=== PATIENT | male | born 1950 | race Caucasian/White ===

== ENCOUNTER 2020-10-31 06:28 | Observation (INO) ==
[2020-10-31] MEDS ORDERED: *HR* Propofol 200 MG/20 ML VIAL IVP ONE ×3 (06:44→09:29)
[2020-10-31] MEDS ORDERED: *HR* Midazolam HCl 2 MG/2 ML VIAL ONE (06:44)
[2020-10-31] MEDS ORDERED: *HR* FentaNYL (PF) 100 MCG/2 ML VIAL ONE (06:44)
[2020-10-31] MEDS ORDERED: Ondansetron 4 MG/2 ML VIAL ONE ×2 (06:50→16:00)
[2020-10-31] MEDS ORDERED: *HR* Succinylcholine 200 MG/10 ML VIAL IVP ONE ×2 (06:50→09:23)
[2020-10-31] MEDS ORDERED: Lidocaine HCL 4 ML Topical Solution (Laryng-O-Jet Kit Sterile Pak) TP ONE (06:50)
[2020-10-31] MEDS ORDERED: *HR* Rocuronium Bromide 50 MG/5 ML VIAL ONE (06:50)
[2020-10-31] MEDS ORDERED: Lidocaine -MPF 2% 2 ML VIAL ONE (06:50)
[2020-10-31] MEDS ORDERED: Ringers Solution, Lactated 1,000 ML IVC SCH (07:15)
[2020-10-31] MEDS ORDERED: *HR* Remifentanil 1 MG VIAL IVP ONE ×4 (07:33→15:05)
[2020-10-31] MEDS ORDERED: *HR* OxyCODONE Immed Rel 5 MG TABLET PO PRN (07:39)
[2020-10-31] MEDS ORDERED: Heparin 1,000 UNITS/500 mL 500 ML ONE (07:39)
[2020-10-31] MEDS ORDERED: Ondansetron 4 MG/2 ML VIAL IVP PRN (07:39)
[2020-10-31] MEDS ORDERED: *HR* HYDROmorphone PF 0.5 MG/0.5 ML SYRINGE IVP PRN (07:39)
[2020-10-31] MEDS ORDERED: Promethazine 6.25 MG in Water for inj. (sterile) 20 ML IVPB PRN (07:39)
[2020-10-31] MEDS ORDERED: Ketamine *HR* 500 MG/10 ML MDV ONE (07:41)
[2020-10-31] MEDS ORDERED: Bacitracin 50,000 UNIT, Polymyxin B Sulfate 500,000 UNIT, Sodium Chloride IRRigation 1,... IR ONE (07:45)
[2020-10-31] MEDS ORDERED: EPHEDrine 50 MG/ML VIAL ONE ×2 (08:11→14:25)
[2020-10-31] MEDS: Clindamycin 900 MG/50 ML 900 MG/50 ML IV.SOLN IVPB ONE ×2 (10:38→14:12)
[2020-10-31] MEDS ORDERED: Albumin Human 5% 12.5 GM/250 ML IV.SOLN ONE (11:22)
[2020-10-31] MEDS ORDERED: Clindamycin 900 MG/50 ML 900 MG/50 ML IV.SOLN IVPB ONE (12:50)
[2020-10-31] MEDS ORDERED: Acetaminophen IV 1,000 MG/100 ML BAG IVPB ONE (12:50)
[2020-10-31 15:32] LABS: ABG Base Excess -1 mEq/L (-2 to 3); ABG Chloride 103 mEq/L (98-107); ABG Glucose 200 mg/dL (60-95); ABG HCO3 25 mEq/L (21-27); ABG Ionized Calcium 1.15 mmol/L (1.15-1.35); ABG Oxygen Saturation 100 % (95-98); ABG PCO2 45 mmHg (35-45); ABG PH 7.35 pH Units (7.32-7.45); ABG PO2 380 mmHg (85-104); ABG TCO2 26 mEq/L (20-26)
[2020-10-31] MEDS ORDERED: *HR* HYDROMORPHONE 2 MG/ML VIAL ONE (16:28)
[2020-10-31] MEDS ORDERED: Acetaminophen 325 MG TABLET PO PRN (18:08)
[2020-10-31] MEDS ORDERED: Naloxone 0.4 MG/ML INJ IVP PRN (18:08)
[2020-10-31] MEDS: *HR* HYDROcodone/Acet 5/325 mg TABLET PO PRN (19:21)
[2020-10-31] MEDS: Clindamycin 900 MG/50 ML 900 MG/50 ML IV.SOLN IVPB SCH (21:00)
[2020-11-01] MEDS: Ringers Solution, Lactated 1,000 ML IVC SCH (02:41)
[2020-11-01] MEDS: Clindamycin 900 MG/50 ML 900 MG/50 ML IV.SOLN IVPB SCH (05:11)
[2020-11-01] MEDS: *HR* HYDROcodone/Acet 5/325 mg TABLET PO PRN ×2 (05:19→16:03)
[2020-11-01 05:22] LABS: Basophils % 0.1 %; Hematocrit 35.5 % (37.5-50.1); Hemoglobin 11.6 g/dL (12.9-16.9); Immature Granulocytes % 0.5 % (0-4); Lymphocytes # 0.4 K/mcL (0.6-4.6); Lymphocytes % 3.5 %; Mean Corpuscular HGB Conc 32.7 g/dL (31.6-35.5); Mean Corpuscular Volume 88.8 fL (83.0-100.0); Mean Platelet Volume 9.8 fL (9.4-12.4); Monocytes # 1.1 K/mcL (0.0-1.3); Monocytes % 9.8 %; Platelet Count 161 K/mcL (140-400); Segmented Neutrophils % 86.1 %; White Blood Count 11.6 K/mcL (4.3-11.1)
[2020-11-01 05:38] LABS: BUN/Creatinine Ratio 21 (6-26); Blood Urea Nitrogen 21 mg/dL (8-23); Calcium 8.6 mg/dL (8.6-10.3); Carbon Dioxide 24 mEq/L (23-29); Chloride 103 mEq/L (98-107); Glucose 293 mg/dL (70-105); Osmolality,Calculated 294 (280-300); Potassium 4.4 mEq/L (3.5-5.1); Sodium 135 mEq/L (136-145); eGFR For African Americans > 60 (> 60); eGFR For Non-African Americans > 60 (> 60)
[2020-11-01] MEDS ORDERED: Dextrose Gel 15 GM/37.5 ML TUBE PO PRN ×2 (05:55)
[2020-11-01] MEDS ORDERED: D5% in Water 1,000 ML IVC PRN (05:55)
[2020-11-01] MEDS ORDERED: *HR* Dextrose 50 % in Water (Vial) 50 ML VIAL IVP PRN (05:55)
[2020-11-01] MEDS ORDERED: diazePAM 2 MG TABLET PO PRN (06:03)
[2020-11-01] MEDS: lisinopriL 5 MG TABLET PO SCH (07:50)
[2020-11-01] MEDS: Pregabalin 75 MG CAPSULE PO SCH ×2 (07:51→21:33)
[2020-11-01] MEDS: *HR* OxyCODONE Immed Rel 5 MG TABLET PO PRN ×2 (07:51→12:43)
[2020-11-01] MEDS ORDERED: *HR* Metformin 500 MG TABLET PO SCH (08:00)
[2020-11-01] MEDS ORDERED: *HR* Glimepiride 4 MG TABLET PO SCH (08:00)
[2020-11-01] MEDS: Insulin LISPRO 300 UNITS/3 ML VIAL SUBQ SCH ×3 (08:01→17:07)
[2020-11-01] MEDS: Acetaminophen 325 MG TABLET PO SCH ×2 (12:42→17:52)
[2020-11-01] MEDS: tiZANidine 4 MG TABLET PO PRN (14:23)
[2020-11-01] MEDS: Insulin DETEMIR 100 UNIT/ML X5UNITS SUBQ SCH (21:33)
[2020-11-02] MEDS: Acetaminophen 325 MG TABLET PO SCH ×5 (00:15→23:46)
[2020-11-02] MEDS: *HR* HYDROcodone/Acet 5/325 mg TABLET PO PRN (06:30)
[2020-11-02] MEDS: Insulin LISPRO 300 UNITS/3 ML VIAL SUBQ SCH ×3 (08:18→17:46)
[2020-11-02] MEDS: lisinopriL 5 MG TABLET PO SCH (09:28)
[2020-11-02] MEDS: Pregabalin 75 MG CAPSULE PO SCH ×2 (09:28→21:53)
[2020-11-02] MEDS: tiZANidine 4 MG TABLET PO PRN (16:07)
[2020-11-02] MEDS: Insulin DETEMIR 100 UNIT/ML X5UNITS SUBQ SCH (21:54)
[2020-11-03] MEDS: Acetaminophen 325 MG TABLET PO SCH ×4 (05:52→23:40)
[2020-11-03 07:42] LABS: Basophils % 0.2 %; Eosinophils % 0.6 %; Hematocrit 28.9 % (37.5-50.1); Immature Granulocytes % 0.9 % (0-4); Lymphocytes # 0.5 K/mcL (0.6-4.6); Lymphocytes % 7.7 %; Mean Corpuscular HGB Conc 32.2 g/dL (31.6-35.5); Mean Corpuscular Hemoglobin 29.6 pg (28.0-33.3); Mean Platelet Volume 9.9 fL (9.4-12.4); Monocytes # 0.7 K/mcL (0.0-1.3); Monocytes % 11.4 %; Neutrophils # 5.1 K/mcL (1.6-8.9); Platelet Count 137 K/mcL (140-400); Red Blood Count 3.14 M/mcL (4.19-5.50); Red Cell Distribution Width 13.2 % (11.5-14.5); Segmented Neutrophils % 79.2 %; White Blood Count 6.5 K/mcL (4.3-11.1)
[2020-11-03 07:51] LABS: Hemoglobin 9.3 g/dL (12.9-16.9)
[2020-11-03 07:56] LABS: BUN/Creatinine Ratio 36 (6-26); Blood Urea Nitrogen 32 mg/dL (8-23); Calcium 8.7 mg/dL (8.6-10.3); Carbon Dioxide 28 mEq/L (23-29); Chloride 101 mEq/L (98-107); Glucose 159 mg/dL (70-105); Osmolality,Calculated 288 (280-300); Sodium 134 mEq/L (136-145); eGFR For African Americans > 60 (> 60); eGFR For Non-African Americans > 60 (> 60)
[2020-11-03] MEDS: Insulin LISPRO 300 UNITS/3 ML VIAL SUBQ SCH ×3 (08:56→17:24)
[2020-11-03] MEDS: lisinopriL 5 MG TABLET PO SCH (09:01)
[2020-11-03] MEDS: Pregabalin 75 MG CAPSULE PO SCH ×2 (09:01→21:24)
[2020-11-03] MEDS: *HR* HYDROcodone/Acet 5/325 mg TABLET PO PRN ×2 (09:23→16:00)
[2020-11-03] MEDS: Insulin DETEMIR 100 UNIT/ML X5UNITS SUBQ SCH (21:24)
[2020-11-04 03:16] LABS: BUN/Creatinine Ratio 39 (6-26); Blood Urea Nitrogen 30 mg/dL (8-23); Calcium 8.8 mg/dL (8.6-10.3); Carbon Dioxide 26 mEq/L (23-29); Chloride 102 mEq/L (98-107); Glucose 169 mg/dL (70-105); Osmolality,Calculated 292 (280-300); Potassium 3.9 mEq/L (3.5-5.1); Sodium 136 mEq/L (136-145); eGFR For African Americans > 60 (> 60); eGFR For Non-African Americans > 60 (> 60)
[2020-11-04 03:22] LABS: Basophils % 0.2 %; Eosinophils # 0.1 K/mcL (0.0-0.6); Hematocrit 29.5 % (37.5-50.1); Hemoglobin 9.5 g/dL (12.9-16.9); Lymphocytes # 0.7 K/mcL (0.6-4.6); Lymphocytes % 10.8 %; Mean Corpuscular HGB Conc 32.2 g/dL (31.6-35.5); Mean Corpuscular Hemoglobin 29.3 pg (28.0-33.3); Mean Platelet Volume 10.1 fL (9.4-12.4); Monocytes # 0.6 K/mcL (0.0-1.3); Monocytes % 10.2 %; Neutrophils # 4.8 K/mcL (1.6-8.9); Platelet Count 156 K/mcL (140-400); Red Blood Count 3.24 M/mcL (4.19-5.50); Red Cell Distribution Width 12.9 % (11.5-14.5); Segmented Neutrophils % 76.8 %; White Blood Count 6.3 K/mcL (4.3-11.1)
[2020-11-04] MEDS: Acetaminophen 325 MG TABLET PO SCH ×2 (06:01→12:20)
[2020-11-04] MEDS: Ringers Solution, Lactated 1,000 ML IVC SCH ×6 (09:29→13:49)
[2020-11-04] MEDS: Insulin LISPRO 300 UNITS/3 ML VIAL SUBQ SCH ×2 (09:40→12:20)
[2020-11-04] MEDS: lisinopriL 5 MG TABLET PO SCH (09:45)
[2020-11-04] MEDS: Pregabalin 75 MG CAPSULE PO SCH (09:45)
[2020-11-04 10:43] VITALS: BP 129/76
[2020-11-04 13:19] LABS: Influenza A PCR Negative (Negative); Influenza B PCR Negative (Negative); Resp. Syncytial Virus PCR Negative (Negative)
[2020-11-04 13:26] LABS: SARS-CoV-2 by PCR (In House) Negative (Negative)
[2020-11-04] MEDS: *HR* OxyCODONE Immed Rel 5 MG TABLET PO PRN (13:49)
== END 2020-11-04 16:12 ==
LOC: SAMDAY 06:28 → 3NENU 06:28
PROVIDERS: ADMIT Orthopaedic Surgery Orthopaedic Surgery of the Spine; ATTEND Orthopaedic Surgery Orthopaedic Surgery of the Spine

== ENCOUNTER 2022-06-15 12:03 | Inpatient (IN) ==
[2022-06-15] MEDS ORDERED: Naloxone 0.4 MG/ML INJ IVP PRN (15:53)
[2022-06-15] MEDS ORDERED: Mag Hydrox/Al Hydrox/Simeth 30 ML UDC PO PRN (15:53)
[2022-06-15] MEDS ORDERED: Ondansetron 4 MG/2 ML VIAL IVP PRN (15:53)
[2022-06-15] MEDS ORDERED: *HR* Dextrose 50 % in Water (Syg) 50 ML SYRINGE IVP PRN (15:53)
[2022-06-15] MEDS ORDERED: MOM Conc 10 ML UD.LIQ PO PRN (15:53)
[2022-06-15] MEDS ORDERED: D5% in Water 1,000 ML IVC PRN (15:53)
[2022-06-15] MEDS ORDERED: Dextrose Gel 15 GM/37.5 ML TUBE PO PRN ×2 (15:53)
[2022-06-15] MEDS ORDERED: Iopamidol - 370 500 ML MLS IVP ONE (17:20)
[2022-06-15] MEDS ORDERED: tiZANidine 4 MG TABLET PO PRN (17:22)
[2022-06-15] MEDS: Insulin LISPRO 300 UNITS/3 ML VIAL SUBQ SCH ×2 (17:35→21:15)
[2022-06-15] MEDS ORDERED: polyethylene glycoL 3350 17 GM POWD.PACK PO PRN (18:11)
[2022-06-15] MEDS: *HR* OxyCODONE Immed Rel 5 MG TABLET PO PRN (21:23)
[2022-06-15] MEDS: Pregabalin 75 MG CAPSULE PO SCH (21:24)
[2022-06-16] MEDS ORDERED: *HR* Heparin 5,000 UNIT/ML VIAL IVP PRN (01:21)
[2022-06-16] MEDS: Heparin 25,000UNIT/250ML 1/2NS 25,000 UNIT/250 ML IV.SOLN IVC SCH ×2 (02:07→09:26)
[2022-06-16] MEDS: *HR* Heparin 5,000 UNIT/ML VIAL IVP PRN ×2 (02:09→19:55)
[2022-06-16] MEDS: Insulin LISPRO 300 UNITS/3 ML VIAL SUBQ SCH ×4 (07:50→20:20)
[2022-06-16] MEDS ORDERED: lisinopriL 5 MG TABLET PO SCH (09:00)
[2022-06-16] MEDS: Carbidopa/Levodopa 25/100 TABLET PO SCH ×3 (09:24→20:44)
[2022-06-16] MEDS: Pregabalin 75 MG CAPSULE PO SCH ×2 (09:24→20:44)
[2022-06-16] MEDS: Aspirin Enteric Coated 81 MG Tablet PO SCH (09:25)
[2022-06-16] MEDS: *HR* OxyCODONE Immed Rel 5 MG TABLET PO PRN ×2 (09:46→20:44)
[2022-06-16 11:45] LABS: Hematocrit 25.8 % (37.5-50.1); Mean Corpuscular Hemoglobin 27.9 pg (28.0-33.3); Mean Corpuscular Volume 89.9 fL (83.0-100.0); Mean Platelet Volume 9.3 fL (9.4-12.4); Platelet Count 233 K/mcL (140-400); Red Blood Count 2.87 M/mcL (4.19-5.50); Red Cell Distribution Width 13.7 % (11.5-14.5); White Blood Count 7.3 K/mcL (4.3-11.1)
[2022-06-16 12:06] LABS: BUN/Creatinine Ratio 26 (6-26); Blood Urea Nitrogen 18 mg/dL (8-23); Calcium 8.4 mg/dL (8.6-10.3); Carbon Dioxide 26 mEq/L (23-29); Chloride 103 mEq/L (98-107); Chol/HDL Ratio 4.5 (0-4.9); Cholesterol 117 mg/dL (< 200); Glucose 203 mg/dL (70-105); HDL Cholesterol 26 mg/dL (40-59); LDL Cholesterol,Calculated 63 mg/dL (< 100); Magnesium 1.9 mg/dL (1.6-2.6); Osmolality,Calculated 292 (280-300); Sodium 137 mEq/L (136-145); Triglycerides 141 mg/dL (< 150)
[2022-06-16 13:17] LABS: Hematocrit 25.1 % (37.5-50.1)
[2022-06-16 22:39] LABS: Hematocrit 25.2 % (37.5-50.1); Hemoglobin 7.9 g/dL (12.9-16.9)
[2022-06-17] MEDS: Heparin 25,000UNIT/250ML 1/2NS 25,000 UNIT/250 ML IV.SOLN IVC SCH (00:04)
[2022-06-17 01:18] LABS: Basophils % 0.3 %; Eosinophils # 0.1 K/mcL (0.0-0.6); Hematocrit 24.7 % (37.5-50.1); Hemoglobin 7.7 g/dL (12.9-16.9); Immature Granulocytes % 1.8 % (0-4); Lymphocytes % 13.6 %; Mean Corpuscular HGB Conc 31.2 g/dL (31.6-35.5); Mean Corpuscular Hemoglobin 28.4 pg (28.0-33.3); Mean Corpuscular Volume 91.1 fL (83.0-100.0); Mean Platelet Volume 9.9 fL (9.4-12.4); Monocytes # 0.6 K/mcL (0.0-1.3); Monocytes % 7.8 %; Neutrophils # 5.3 K/mcL (1.6-8.9); Platelet Count 257 K/mcL (140-400); Red Blood Count 2.71 M/mcL (4.19-5.50); Red Cell Distribution Width 13.9 % (11.5-14.5); Segmented Neutrophils % 75.5 %; White Blood Count 7.1 K/mcL (4.3-11.1)
[2022-06-17 01:35] LABS: BUN/Creatinine Ratio 24 (6-26); Blood Urea Nitrogen 18 mg/dL (8-23); Calcium 8.3 mg/dL (8.6-10.3); Carbon Dioxide 27 mEq/L (23-29); Chloride 106 mEq/L (98-107); Glucose 110 mg/dL (70-105); Osmolality,Calculated 291 (280-300); Potassium 3.8 mEq/L (3.5-5.1); Sodium 139 mEq/L (136-145)
[2022-06-17 01:43] LABS: Troponin I 0.13 ng/mL (< 0.04)
[2022-06-17 01:50] LABS: Thyroid Stimulating Hormone 2.632 mcIU/mL (0.340-5.600)
[2022-06-17] MEDS ORDERED: 0.9 % Sodium Chloride 250 ML ONE (01:54)
[2022-06-17 03:30] LABS: Estimated Average Glucose 151 mg/dl; Hemoglobin A1C 6.9 %
[2022-06-17] MEDS: *HR* OxyCODONE Immed Rel 5 MG TABLET PO PRN (06:10)
[2022-06-17] MEDS: Aspirin Enteric Coated 81 MG Tablet PO SCH (08:03)
[2022-06-17] MEDS: Carbidopa/Levodopa 25/100 TABLET PO SCH ×3 (08:04→20:24)
[2022-06-17] MEDS: Pregabalin 75 MG CAPSULE PO SCH ×2 (08:05→20:24)
[2022-06-17] MEDS: lisinopriL 5 MG TABLET PO SCH (08:05)
[2022-06-17] MEDS: Insulin LISPRO 300 UNITS/3 ML VIAL SUBQ SCH ×4 (08:06→20:07)
[2022-06-17 09:36] LABS: Basophils % 0.2 %; Eosinophils # 0.1 K/mcL (0.0-0.6); Hematocrit 28.4 % (37.5-50.1); Hemoglobin 8.9 g/dL (12.9-16.9); Immature Granulocytes % 1.6 % (0-4); Lymphocytes # 0.7 K/mcL (0.6-4.6); Lymphocytes % 8.8 %; Mean Corpuscular HGB Conc 31.3 g/dL (31.6-35.5); Mean Corpuscular Hemoglobin 28.5 pg (28.0-33.3); Mean Platelet Volume 9.7 fL (9.4-12.4); Monocytes # 0.5 K/mcL (0.0-1.3); Monocytes % 5.7 %; Neutrophils # 6.7 K/mcL (1.6-8.9); Platelet Count 269 K/mcL (140-400); Red Blood Count 3.12 M/mcL (4.19-5.50); Segmented Neutrophils % 82.7 %; White Blood Count 8.1 K/mcL (4.3-11.1)
[2022-06-17] MEDS: Acetaminophen 325 MG TABLET PO PRN (10:32)
[2022-06-18] MEDS: lisinopriL 5 MG TABLET PO SCH (08:20)
[2022-06-18] MEDS: Pregabalin 75 MG CAPSULE PO SCH ×2 (08:21→20:27)
[2022-06-18] MEDS: Aspirin Enteric Coated 81 MG Tablet PO SCH (08:21)
[2022-06-18] MEDS: Insulin LISPRO 300 UNITS/3 ML VIAL SUBQ SCH ×4 (08:22→20:28)
[2022-06-18] MEDS: *HR* OxyCODONE Immed Rel 5 MG TABLET PO PRN (08:25)
[2022-06-18] MEDS: Carbidopa/Levodopa 25/100 TABLET PO SCH ×3 (08:25→20:28)
[2022-06-18 17:55] LABS: BUN/Creatinine Ratio 18 (6-26); Blood Urea Nitrogen 14 mg/dL (8-23); Calcium 8.2 mg/dL (8.6-10.3); Carbon Dioxide 25 mEq/L (23-29); Chloride 104 mEq/L (98-107); Glucose 207 mg/dL (70-105); Magnesium 1.8 mg/dL (1.6-2.6); Osmolality,Calculated 291 (280-300); Potassium 4.3 mEq/L (3.5-5.1); Sodium 137 mEq/L (136-145)
[2022-06-18 17:56] LABS: Hematocrit 29.1 % (37.5-50.1); Hemoglobin 9.2 g/dL (12.9-16.9); Mean Corpuscular HGB Conc 31.6 g/dL (31.6-35.5); Mean Corpuscular Hemoglobin 28.2 pg (28.0-33.3); Mean Corpuscular Volume 89.3 fL (83.0-100.0); Mean Platelet Volume 10.5 fL (9.4-12.4); Platelet Count 233 K/mcL (140-400); Red Blood Count 3.26 M/mcL (4.19-5.50); Red Cell Distribution Width 13.7 % (11.5-14.5); White Blood Count 9.2 K/mcL (4.3-11.1)
[2022-06-19] MEDS: *HR* HYDROcodone/Acet 5/325 mg TABLET PO PRN ×2 (07:42→15:33)
[2022-06-19] MEDS: Insulin LISPRO 300 UNITS/3 ML VIAL SUBQ SCH ×4 (07:55→20:43)
[2022-06-19] MEDS: lisinopriL 5 MG TABLET PO SCH (08:44)
[2022-06-19] MEDS: Carbidopa/Levodopa 25/100 TABLET PO SCH ×3 (08:44→20:42)
[2022-06-19] MEDS: Pregabalin 75 MG CAPSULE PO SCH ×2 (08:45→20:41)
[2022-06-19] MEDS: Aspirin Enteric Coated 81 MG Tablet PO SCH (08:45)
[2022-06-19 13:45] LABS: Basophils % 0.1 %; Eosinophils # 0.1 K/mcL (0.0-0.6); Eosinophils % 0.6 %; Hematocrit 30.6 % (37.5-50.1); Hemoglobin 9.6 g/dL (12.9-16.9); Lymphocytes # 0.6 K/mcL (0.6-4.6); Mean Corpuscular HGB Conc 31.4 g/dL (31.6-35.5); Mean Corpuscular Hemoglobin 28.5 pg (28.0-33.3); Mean Corpuscular Volume 90.8 fL (83.0-100.0); Mean Platelet Volume 9.4 fL (9.4-12.4); Monocytes # 0.8 K/mcL (0.0-1.3); Monocytes % 8.2 %; Neutrophils # 7.8 K/mcL (1.6-8.9); Platelet Count 307 K/mcL (140-400); Red Blood Count 3.37 M/mcL (4.19-5.50); Red Cell Distribution Width 13.7 % (11.5-14.5); Segmented Neutrophils % 84.1 %; White Blood Count 9.3 K/mcL (4.3-11.1)
[2022-06-19 14:03] LABS: BUN/Creatinine Ratio 15 (6-26); Blood Urea Nitrogen 13 mg/dL (8-23); Calcium 8.4 mg/dL (8.6-10.3); Carbon Dioxide 27 mEq/L (23-29); Chloride 103 mEq/L (98-107); Glucose 196 mg/dL (70-105); Osmolality,Calculated 290 (280-300); Potassium 4.2 mEq/L (3.5-5.1); Sodium 137 mEq/L (136-145)
[2022-06-19] MEDS: *HR* OxyCODONE Immed Rel 5 MG TABLET PO PRN (17:12)
[2022-06-20 03:02] LABS: Basophils % 0.5 %; Eosinophils # 0.1 K/mcL (0.0-0.6); Eosinophils % 0.9 %; Hematocrit 27.3 % (37.5-50.1); Hemoglobin 8.3 g/dL (12.9-16.9); Immature Granulocytes % 1.7 % (0-4); Lymphocytes # 0.7 K/mcL (0.6-4.6); Lymphocytes % 10.7 %; Mean Corpuscular HGB Conc 30.4 g/dL (31.6-35.5); Mean Corpuscular Hemoglobin 27.4 pg (28.0-33.3); Mean Corpuscular Volume 90.1 fL (83.0-100.0); Mean Platelet Volume 9.4 fL (9.4-12.4); Monocytes # 0.8 K/mcL (0.0-1.3); Monocytes % 11.7 %; Platelet Count 296 K/mcL (140-400); Red Blood Count 3.03 M/mcL (4.19-5.50); Red Cell Distribution Width 13.9 % (11.5-14.5); Segmented Neutrophils % 74.5 %; White Blood Count 6.7 K/mcL (4.3-11.1)
[2022-06-20 03:26] LABS: BUN/Creatinine Ratio 17 (6-26); Blood Urea Nitrogen 13 mg/dL (8-23); Carbon Dioxide 26 mEq/L (23-29); Chloride 104 mEq/L (98-107); Glucose 144 mg/dL (70-105); Osmolality,Calculated 289 (280-300); Potassium 3.9 mEq/L (3.5-5.1); Sodium 138 mEq/L (136-145)
[2022-06-20] MEDS: Pregabalin 75 MG CAPSULE PO SCH ×2 (08:34→21:37)
[2022-06-20] MEDS: Aspirin Enteric Coated 81 MG Tablet PO SCH (08:34)
[2022-06-20] MEDS: lisinopriL 5 MG TABLET PO SCH (08:35)
[2022-06-20] MEDS: Carbidopa/Levodopa 25/100 TABLET PO SCH ×3 (08:35→21:37)
[2022-06-20] MEDS: Insulin LISPRO 300 UNITS/3 ML VIAL SUBQ SCH ×4 (08:36→21:36)
[2022-06-20] MEDS: *HR* HYDROcodone/Acet 5/325 mg TABLET PO PRN ×3 (08:41→21:36)
[2022-06-20 10:42] LABS: Hematocrit 28.2 % (37.5-50.1); Hemoglobin 8.8 g/dL (12.9-16.9)
[2022-06-20 13:20] LABS: BUN/Creatinine Ratio 16 (6-26); Blood Urea Nitrogen 13 mg/dL (8-23); Calcium 7.8 mg/dL (8.6-10.3); Carbon Dioxide 24 mEq/L (23-29); Chloride 104 mEq/L (98-107); Glucose 261 mg/dL (70-105); Osmolality,Calculated 291 (280-300); Potassium 4.1 mEq/L (3.5-5.1); Sodium 136 mEq/L (136-145)
[2022-06-20] MEDS: Acetaminophen 325 MG TABLET PO PRN (13:54)
[2022-06-21] MEDS: Insulin LISPRO 300 UNITS/3 ML VIAL SUBQ SCH ×4 (07:52→20:45)
[2022-06-21] MEDS: Aspirin Enteric Coated 81 MG Tablet PO SCH (08:04)
[2022-06-21] MEDS: Carbidopa/Levodopa 25/100 TABLET PO SCH ×3 (08:04→20:45)
[2022-06-21] MEDS: *HR* HYDROcodone/Acet 5/325 mg TABLET PO PRN ×2 (08:04→20:45)
[2022-06-21] MEDS: lisinopriL 5 MG TABLET PO SCH (08:05)
[2022-06-21] MEDS: Pregabalin 75 MG CAPSULE PO SCH ×2 (08:05→20:44)
[2022-06-21 09:07] LABS: Basophils % 0.4 %; Eosinophils # 0.1 K/mcL (0.0-0.6); Eosinophils % 0.9 %; Hematocrit 31.4 % (37.5-50.1); Hemoglobin 9.9 g/dL (12.9-16.9); Lymphocytes # 0.6 K/mcL (0.6-4.6); Mean Corpuscular HGB Conc 31.5 g/dL (31.6-35.5); Mean Corpuscular Hemoglobin 28.2 pg (28.0-33.3); Mean Corpuscular Volume 89.5 fL (83.0-100.0); Mean Platelet Volume 9.2 fL (9.4-12.4); Monocytes # 0.8 K/mcL (0.0-1.3); Monocytes % 10.2 %; Platelet Count 327 K/mcL (140-400); Red Blood Count 3.51 M/mcL (4.19-5.50); Segmented Neutrophils % 78.5 %; White Blood Count 7.6 K/mcL (4.3-11.1)
[2022-06-21] MEDS ORDERED: Metoprolol XL (24 HR) Succ 25 MG TAB.ER.24H PO SCH (10:45)
[2022-06-21] MEDS ORDERED: Iopamidol - 370 200 ML INFUS..BTL ONE (14:23)
[2022-06-21] MEDS ORDERED: 0.9 % Sodium Chloride 2,000 ML ONE (14:23)
[2022-06-21] MEDS ORDERED: *HR* FentaNYL (PF) 100 MCG/2 ML VIAL ONE (14:23)
[2022-06-21] MEDS ORDERED: Heparin 1,000 UNITS/500 mL 500 ML ONE (14:23)
[2022-06-21] MEDS ORDERED: *HR* Midazolam HCl 2 MG/2 ML VIAL ONE (14:23)
[2022-06-21] MEDS ORDERED: *HR* Heparin 10,000 UNIT/10 ML VIAL ONE (14:23)
[2022-06-21] MEDS ORDERED: Nitroglycerin 1,000 MCG/5 ML VIAL IV ONE (14:23)
[2022-06-21 19:18] LABS: ABG Base Excess 2 mEq/L (-2 to 3); ABG HCO3 26 mEq/L (21-27); ABG Oxygen Saturation 95 % (95-98); ABG PCO2 36 mmHg (35-45); ABG PH 7.47 pH Units (7.32-7.45); ABG PO2 68 mmHg (85-104); ABG TCO2 27 mEq/L (20-26)
[2022-06-21] MEDS: Chlorhexidine Rinse 15 ML MOUTHWASH MM SCH (20:44)
[2022-06-22] MEDS: Chlorhexidine Rinse 15 ML MOUTHWASH MM SCH ×3 (04:57→20:00)
[2022-06-22 05:03] LABS: Basophils % 0.5 %; Eosinophils # 0.1 K/mcL (0.0-0.6); Eosinophils % 1.3 %; Hemoglobin 9.3 g/dL (12.9-16.9); Immature Granulocytes % 1.5 % (0-4); Lymphocytes # 0.7 K/mcL (0.6-4.6); Lymphocytes % 11.4 %; Mean Corpuscular Hemoglobin 27.8 pg (28.0-33.3); Mean Corpuscular Volume 92.8 fL (83.0-100.0); Mean Platelet Volume 9.4 fL (9.4-12.4); Monocytes # 0.7 K/mcL (0.0-1.3); Monocytes % 11.1 %; Neutrophils # 4.5 K/mcL (1.6-8.9); Platelet Count 345 K/mcL (140-400); Red Blood Count 3.34 M/mcL (4.19-5.50); Red Cell Distribution Width 13.9 % (11.5-14.5); Segmented Neutrophils % 74.2 %
[2022-06-22 05:18] LABS: BUN/Creatinine Ratio 18 (6-26); Blood Urea Nitrogen 13 mg/dL (8-23); Calcium 8.3 mg/dL (8.6-10.3); Carbon Dioxide 27 mEq/L (23-29); Chloride 104 mEq/L (98-107); Glucose 142 mg/dL (70-105); Osmolality,Calculated 289 (280-300); Potassium 4.1 mEq/L (3.5-5.1); Sodium 138 mEq/L (136-145)
[2022-06-22] MEDS ORDERED: Aspirin 81 MG TAB.CHEW PO ONE ×2 (06:00→16:00)
[2022-06-22] MEDS ORDERED: Clindamycin 900 MG/50 ML 900 MG/50 ML IV.SOLN IVPB ONE (06:00)
[2022-06-22] MEDS ORDERED: *HR* Vasopressin 20 UNIT/ML VIAL ONE (06:06)
[2022-06-22] MEDS ORDERED: DOBUTamine 1,000 MG/250 ML BAG ONE (06:06)
[2022-06-22] MEDS ORDERED: Papaverine 60 MG/2 ML VIAL IVP ONE (06:08)
[2022-06-22] MEDS ORDERED: *HR* Midazolam HCl 5 MG/5 ML VIAL IVP ONE (06:10)
[2022-06-22] MEDS ORDERED: *HR* FentaNYL (PF) 1,000 MCG/20 ML VIAL ONE (06:10)
[2022-06-22] MEDS ORDERED: *HR* Propofol 200 MG/20 ML VIAL IVP ONE (06:10)
[2022-06-22] MEDS ORDERED: Tranexamic Acid 1,000 MG/10 ML VIAL ONE (06:14)
[2022-06-22] MEDS ORDERED: *HR* Rocuronium Bromide 50 MG/5 ML VIAL ONE ×3 (06:14→12:09)
[2022-06-22] MEDS ORDERED: Famotidine 20 MG/2 ML VIAL ONE (06:14)
[2022-06-22] MEDS ORDERED: *HR* Magnesium Sulfate 1 GM/2 ML VIAL ONE (06:14)
[2022-06-22] MEDS ORDERED: Lidocaine 2% Syringe 100 MG/5 ML ONE (06:14)
[2022-06-22] MEDS ORDERED: Buckersberg's Blood Cardioplegia PF ONE (07:00)
[2022-06-22] MEDS ORDERED: Norepinephrine 4 MG in 0.9 % Sodium Chloride 250 ML IVC PRN (07:00)
[2022-06-22] MEDS ORDERED: del Nido Cardioplegia Solution PF ONE ×2 (07:00)
[2022-06-22] MEDS ORDERED: Heparin 15,000 UNIT in 0.9 % Sodium Chloride 500 ML IR ONE (07:00)
[2022-06-22 07:45] LABS: ABG Base Excess 0 mEq/L (-2 to 3); ABG Chloride 106 mEq/L (98-107); ABG Glucose 158 mg/dL (60-95); ABG HCO3 26 mEq/L (21-27); ABG Oxygen Saturation 100 % (95-98); ABG PCO2 44 mmHg (35-45); ABG PH 7.37 pH Units (7.32-7.45); ABG PO2 422 mmHg (85-104); ABG TCO2 27 mEq/L (20-26)
[2022-06-22 09:55] LABS: ABG Base Excess 0 mEq/L (-2 to 3); ABG Chloride 100 mEq/L (98-107); ABG Glucose 167 mg/dL (60-95); ABG HCO3 24 mEq/L (21-27); ABG Ionized Calcium 1.15 mmol/L (1.15-1.35); ABG Oxygen Saturation 100 % (95-98); ABG PCO2 37 mmHg (35-45); ABG PH 7.42 pH Units (7.32-7.45); ABG PO2 206 mmHg (85-104); ABG TCO2 26 mEq/L (20-26)
[2022-06-22] MEDS ORDERED: *HR* FentaNYL (PF) 250 MCG/5 ML VIAL ONE (09:58)
[2022-06-22 10:40] LABS: ABG Base Excess 1 mEq/L (-2 to 3); ABG Chloride 99 mEq/L (98-107); ABG Glucose 178 mg/dL (60-95); ABG HCO3 26 mEq/L (21-27); ABG Ionized Calcium 1.13 mmol/L (1.15-1.35); ABG Oxygen Saturation 100 % (95-98); ABG PCO2 43 mmHg (35-45); ABG PH 7.39 pH Units (7.32-7.45); ABG PO2 429 mmHg (85-104); ABG TCO2 27 mEq/L (20-26)
[2022-06-22] MEDS ORDERED: Ondansetron 4 MG/2 ML VIAL IVP PRN (10:53)
[2022-06-22] MEDS ORDERED: Albuterol 2.5 MG/3 ML NEBULIZER IH PRN (10:54)
[2022-06-22] MEDS ORDERED: *HR* Dextrose 50 % in Water (Syg) 50 ML SYRINGE IVP PRN (10:54)
[2022-06-22] MEDS ORDERED: Insulin Regular, Human 100 UNIT/ML IV PRN (10:54)
[2022-06-22] MEDS ORDERED: Potassium Chloride 40 MEQ/200 ML BAG IVPB PRN (10:54)
[2022-06-22 10:57] LABS: ABG Base Excess 0 mEq/L (-2 to 3); ABG Chloride 107 mEq/L (98-107); ABG Glucose 165 mg/dL (60-95); ABG HCO3 24 mEq/L (21-27); ABG Ionized Calcium 0.95 mmol/L (1.15-1.35); ABG Oxygen Saturation 100 % (95-98); ABG PCO2 35 mmHg (35-45); ABG PH 7.45 pH Units (7.32-7.45); ABG PO2 313 mmHg (85-104); ABG TCO2 25 mEq/L (20-26)
[2022-06-22] MEDS: Ipratropium/Albuterol Neb 3 ML IH SCH ×4 (11:25→23:16)
[2022-06-22 11:27] LABS: ABG Base Excess 0 mEq/L (-2 to 3); ABG Chloride 99 mEq/L (98-107); ABG Glucose 191 mg/dL (60-95); ABG HCO3 24 mEq/L (21-27); ABG Ionized Calcium 1.06 mmol/L (1.15-1.35); ABG Oxygen Saturation 100 % (95-98); ABG PCO2 36 mmHg (35-45); ABG PH 7.43 pH Units (7.32-7.45); ABG PO2 436 mmHg (85-104); ABG TCO2 25 mEq/L (20-26)
[2022-06-22] MEDS: Pregabalin 75 MG CAPSULE PO SCH ×3 (11:28→20:20)
[2022-06-22] MEDS: Carbidopa/Levodopa 25/100 TABLET PO SCH ×4 (11:28→20:21)
[2022-06-22] MEDS ORDERED: Albumin Human 25% 25 GM/100 ML IV.SOLN IVPB ONE (11:35)
[2022-06-22] MEDS ORDERED: *HR* Heparin 10,000 UNIT/10 ML VIAL IR ONE (11:35)
[2022-06-22] MEDS ORDERED: Tranexamic Acid 1,000 MG/10 ML VIAL IR ONE (11:35)
[2022-06-22] MEDS ORDERED: Lidocaine 2% Syringe 100 MG/5 ML IVP ONE (11:35)
[2022-06-22] MEDS ORDERED: *HR* Magnesium Sulfate 2 GM/50 ML PIGGYBACK IVPB ONE (11:35)
[2022-06-22] MEDS ORDERED: *HR* Phenylephrine 10 MG/ML VIAL IVC ONE (11:35)
[2022-06-22] MEDS ORDERED: Mannitol 25% vial 12.5 GM/50 ML VIAL IVPB ONE (11:35)
[2022-06-22] MEDS ORDERED: Heparin 1,000 UNITS/500 mL IV.SOLN IR ONE (11:35)
[2022-06-22 12:04] LABS: ABG Base Excess 1 mEq/L (-2 to 3); ABG Chloride 100 mEq/L (98-107); ABG Glucose 209 mg/dL (60-95); ABG HCO3 26 mEq/L (21-27); ABG Ionized Calcium 1.06 mmol/L (1.15-1.35); ABG Oxygen Saturation 100 % (95-98); ABG PCO2 40 mmHg (35-45); ABG PH 7.42 pH Units (7.32-7.45); ABG PO2 575 mmHg (85-104); ABG TCO2 27 mEq/L (20-26)
[2022-06-22 12:33] LABS: ABG Base Excess 1 mEq/L (-2 to 3); ABG Chloride 101 mEq/L (98-107); ABG Glucose 207 mg/dL (60-95); ABG HCO3 26 mEq/L (21-27); ABG Oxygen Saturation 100 % (95-98); ABG PCO2 43 mmHg (35-45); ABG PH 7.38 pH Units (7.32-7.45); ABG PO2 559 mmHg (85-104); ABG TCO2 27 mEq/L (20-26)
[2022-06-22 12:51] LABS: ABG Base Excess 0 mEq/L (-2 to 3); ABG Chloride 102 mEq/L (98-107); ABG Glucose 221 mg/dL (60-95); ABG HCO3 25 mEq/L (21-27); ABG Ionized Calcium 1.24 mmol/L (1.15-1.35); ABG Oxygen Saturation 97 % (95-98); ABG PCO2 43 mmHg (35-45); ABG PH 7.37 pH Units (7.32-7.45); ABG PO2 96 mmHg (85-104); ABG TCO2 26 mEq/L (20-26)
[2022-06-22] MEDS ORDERED: niCARdipine 20 MG/200 ML MLS IVC ONE (13:23)
[2022-06-22 14:09] LABS: ABG Base Excess -1 mEq/L (-2 to 3); ABG HCO3 23 mEq/L (21-27); ABG Oxygen Saturation 100 % (95-98); ABG PCO2 34 mmHg (35-45); ABG PH 7.44 pH Units (7.32-7.45); ABG PO2 284 mmHg (85-104); ABG TCO2 24 mEq/L (20-26); Blood Gas Modality ASSIST CONTROL; Blood Gas VT 650 cc
[2022-06-22 14:14] LABS: Basophils % 0.3 %; Eosinophils % 0.3 %; Hematocrit 26.2 % (37.5-50.1); Hemoglobin 8.2 g/dL (12.9-16.9); Immature Granulocytes % 1.8 % (0-4); Lymphocytes # 0.4 K/mcL (0.6-4.6); Lymphocytes % 5.4 %; Mean Corpuscular HGB Conc 31.3 g/dL (31.6-35.5); Mean Corpuscular Hemoglobin 28.2 pg (28.0-33.3); Mean Platelet Volume 9.1 fL (9.4-12.4); Monocytes # 0.2 K/mcL (0.0-1.3); Monocytes % 2.2 %; Neutrophils # 6.6 K/mcL (1.6-8.9); Platelet Count 224 K/mcL (140-400); Red Blood Count 2.91 M/mcL (4.19-5.50); Red Cell Distribution Width 13.7 % (11.5-14.5); White Blood Count 7.4 K/mcL (4.3-11.1)
[2022-06-22 14:27] LABS: INR 1.6; Prothrombin Time 17.4 Seconds (9.4-12.1)
[2022-06-22 14:30] LABS: Activated Partial Thrombo Time 27.1 Seconds (26.0-36.0)
[2022-06-22] MEDS: Albumin Human 5% 12.5 GM/250 ML IV.SOLN IVPB PRN ×4 (14:30→22:35)
[2022-06-22 14:32] LABS: BUN/Creatinine Ratio 21 (6-26); Blood Urea Nitrogen 12 mg/dL (8-23); Calcium 7.3 mg/dL (8.6-10.3); Carbon Dioxide 24 mEq/L (23-29); Chloride 107 mEq/L (98-107); Glucose 202 mg/dL (70-105); Magnesium 2.7 mg/dL (1.6-2.6); Osmolality,Calculated 288 (280-300); Potassium 4.4 mEq/L (3.5-5.1); Sodium 136 mEq/L (136-145)
[2022-06-22] MEDS: DOBUTamine 1,000 MG/250 ML BAG IVC SCH (15:08)
[2022-06-22] MEDS: niCARdipine 20 MG/200 ML MLS IVC SCH ×3 (15:08→19:07)
[2022-06-22] MEDS: Norepinephrine 4 MG/254 ML IV.SOLN IVC SCH ×2 (15:09→22:36)
[2022-06-22] MEDS: Pantoprazole 40 MG VIAL IVP SCH (15:13)
[2022-06-22] MEDS: *HR* OxyCODONE Immed Rel 5 MG TABLET PO PRN (15:14)
[2022-06-22] MEDS: Calcium Gluconate 1gm/50mL 1 GM/50 ML BAG IVPB PRN (15:15)
[2022-06-22] MEDS: Clindamycin 900 MG/50 ML 900 MG/50 ML IV.SOLN IVPB SCH ×2 (15:15→23:19)
[2022-06-22] MEDS: *HR* FentaNYL (PF) 100 MCG/2 ML VIAL IVP PRN (16:20)
[2022-06-22 20:10] LABS: ABG Base Excess 1 mEq/L (-2 to 3); ABG HCO3 26 mEq/L (21-27); ABG Oxygen Saturation 99 % (95-98); ABG PCO2 42 mmHg (35-45); ABG PO2 142 mmHg (85-104); ABG TCO2 27 mEq/L (20-26)
[2022-06-23] MEDS: *HR* FentaNYL (PF) 100 MCG/2 ML VIAL IVP PRN (01:04)
[2022-06-23] MEDS: niCARdipine 20 MG/200 ML MLS IVC SCH ×5 (03:08→19:01)
[2022-06-23] MEDS: Ipratropium/Albuterol Neb 3 ML IH SCH ×5 (03:18→19:58)
[2022-06-23 03:29] LABS: Basophils % 0.1 %; Hematocrit 23.2 % (37.5-50.1); Hemoglobin 7.3 g/dL (12.9-16.9); Immature Granulocytes % 0.9 % (0-4); Lymphocytes # 0.4 K/mcL (0.6-4.6); Lymphocytes % 4.4 %; Mean Corpuscular HGB Conc 31.5 g/dL (31.6-35.5); Mean Corpuscular Hemoglobin 28.1 pg (28.0-33.3); Mean Corpuscular Volume 89.2 fL (83.0-100.0); Mean Platelet Volume 8.9 fL (9.4-12.4); Monocytes % 10.7 %; Neutrophils # 7.7 K/mcL (1.6-8.9); Platelet Count 253 K/mcL (140-400); Red Cell Distribution Width 13.8 % (11.5-14.5); Segmented Neutrophils % 83.9 %; White Blood Count 9.2 K/mcL (4.3-11.1)
[2022-06-23 03:36] LABS: INR 1.4; Prothrombin Time 15.6 Seconds (9.4-12.1)
[2022-06-23 03:39] LABS: Activated Partial Thrombo Time 27.6 Seconds (26.0-36.0)
[2022-06-23 03:54] LABS: BUN/Creatinine Ratio 20 (6-26); Blood Urea Nitrogen 15 mg/dL (8-23); Calcium 7.9 mg/dL (8.6-10.3); Carbon Dioxide 23 mEq/L (23-29); Chloride 106 mEq/L (98-107); Glucose 161 mg/dL (70-105); Magnesium 2.4 mg/dL (1.6-2.6); Osmolality,Calculated 284 (280-300); Potassium 4.3 mEq/L (3.5-5.1); Sodium 135 mEq/L (136-145)
[2022-06-23] MEDS: Calcium Gluconate 1gm/50mL 1 GM/50 ML BAG IVPB PRN (04:07)
[2022-06-23] MEDS: *HR* Enoxaparin 40 MG/0.4 ML SYRINGE SQ SCH (05:05)
[2022-06-23] MEDS: *HR* HYDROcodone/Acet 5/325 mg TABLET PO PRN ×2 (05:17→12:04)
[2022-06-23] MEDS: Clindamycin 900 MG/50 ML 900 MG/50 ML IV.SOLN IVPB SCH ×3 (09:04→23:08)
[2022-06-23] MEDS: Pregabalin 75 MG CAPSULE PO SCH ×2 (09:09→20:03)
[2022-06-23] MEDS: Carbidopa/Levodopa 25/100 TABLET PO SCH ×3 (09:11→22:04)
[2022-06-23] MEDS: Aspirin Enteric Coated 81 MG Tablet PO SCH (09:12)
[2022-06-23] MEDS: Pantoprazole 40 MG VIAL IVP SCH (09:13)
[2022-06-23] MEDS: polyethylene glycoL 3350 17 GM POWD.PACK PO SCH (09:13)
[2022-06-23] MEDS: Chlorhexidine Rinse 15 ML MOUTHWASH MM SCH ×2 (09:19→20:02)
[2022-06-23] MEDS: *HR* OxyCODONE Immed Rel 5 MG TABLET PO PRN ×2 (10:32→17:11)
[2022-06-23] MEDS: DOBUTamine 1,000 MG/250 ML BAG IVC SCH (11:00)
[2022-06-23] MEDS: Albumin Human 5% 12.5 GM/250 ML IV.SOLN IVC SCH ×2 (11:05→15:30)
[2022-06-23] MEDS ORDERED: *HR* Dextrose 50 % in Water (Syg) 50 ML SYRINGE IVP PRN (15:18)
[2022-06-23] MEDS ORDERED: D5% in Water 1,000 ML IVC PRN (15:18)
[2022-06-23] MEDS ORDERED: Dextrose Gel 15 GM/37.5 ML TUBE PO PRN ×2 (15:18)
[2022-06-23] MEDS: Norepinephrine 4 MG/254 ML IV.SOLN IVC SCH (18:32)
[2022-06-23] MEDS: Insulin LISPRO 300 UNITS/3 ML VIAL SUBQ SCH ×2 (18:33→20:07)
[2022-06-24] MEDS: Ipratropium/Albuterol Neb 3 ML IH SCH ×7 (00:04→22:58)
[2022-06-24] MEDS: Norepinephrine 4 MG/254 ML IV.SOLN IVC SCH ×2 (00:04→17:32)
[2022-06-24 03:09] LABS: Basophils % 0.1 %; Hematocrit 21.5 % (37.5-50.1); Hemoglobin 6.6 g/dL (12.9-16.9); Immature Granulocytes % 1.4 % (0-4); Lymphocytes # 0.3 K/mcL (0.6-4.6); Mean Corpuscular HGB Conc 30.7 g/dL (31.6-35.5); Mean Corpuscular Hemoglobin 27.5 pg (28.0-33.3); Mean Corpuscular Volume 89.6 fL (83.0-100.0); Mean Platelet Volume 9.3 fL (9.4-12.4); Monocytes % 11.3 %; Platelet Count 237 K/mcL (140-400); Red Cell Distribution Width 14.2 % (11.5-14.5); Segmented Neutrophils % 83.2 %; White Blood Count 8.4 K/mcL (4.3-11.1)
[2022-06-24 03:31] LABS: Calcium 7.8 mg/dL (8.6-10.3); Magnesium 2.2 mg/dL (1.6-2.6); Potassium 4.8 mEq/L (3.5-5.1)
[2022-06-24] MEDS ORDERED: 0.9 % Sodium Chloride 250 ML ONE (03:37)
[2022-06-24] MEDS: Calcium Gluconate 1gm/50mL 1 GM/50 ML BAG IVPB PRN (03:48)
[2022-06-24] MEDS: *HR* Enoxaparin 40 MG/0.4 ML SYRINGE SQ SCH (05:00)
[2022-06-24] MEDS: niCARdipine 20 MG/200 ML MLS IVC SCH ×6 (07:16→20:19)
[2022-06-24] MEDS: Insulin LISPRO 300 UNITS/3 ML VIAL SUBQ SCH ×4 (07:23→20:16)
[2022-06-24] MEDS: Clindamycin 900 MG/50 ML 900 MG/50 ML IV.SOLN IVPB SCH (07:28)
[2022-06-24] MEDS: *HR* HYDROcodone/Acet 5/325 mg TABLET PO PRN ×2 (07:44→13:34)
[2022-06-24] MEDS: Carbidopa/Levodopa 25/100 TABLET PO SCH ×3 (07:45→20:16)
[2022-06-24] MEDS: Pantoprazole 40 MG VIAL IVP SCH (07:45)
[2022-06-24] MEDS: Pregabalin 75 MG CAPSULE PO SCH ×2 (07:45→20:15)
[2022-06-24] MEDS: Chlorhexidine Rinse 15 ML MOUTHWASH MM SCH ×2 (07:45→20:15)
[2022-06-24] MEDS: polyethylene glycoL 3350 17 GM POWD.PACK PO SCH (07:45)
[2022-06-24] MEDS: Aspirin Enteric Coated 81 MG Tablet PO SCH (07:45)
[2022-06-24] MEDS: *HR* OxyCODONE Immed Rel 5 MG TABLET PO PRN (09:39)
[2022-06-24] MEDS ORDERED: Chloraseptic Spray 177 ML BOTTLE MM PRN (09:53)
[2022-06-24] MEDS ORDERED: Furosemide 40 MG/4 ML VIAL IVP ONE (09:59)
[2022-06-24] MEDS: Albumin Human 5% 12.5 GM/250 ML IV.SOLN IVC SCH ×2 (10:31→14:50)
[2022-06-24] MEDS: DOBUTamine 1,000 MG/250 ML BAG IVC SCH (11:02)
[2022-06-24 12:10] LABS: Hematocrit 23.6 % (37.5-50.1); Hemoglobin 7.2 g/dL (12.9-16.9)
[2022-06-25 03:26] LABS: Basophils % 0.1 %; Eosinophils % 0.4 %; Hematocrit 22.8 % (37.5-50.1); Immature Granulocytes % 1.4 % (0-4); Lymphocytes # 0.5 K/mcL (0.6-4.6); Lymphocytes % 6.2 %; Mean Corpuscular HGB Conc 30.7 g/dL (31.6-35.5); Mean Corpuscular Hemoglobin 27.8 pg (28.0-33.3); Mean Corpuscular Volume 90.5 fL (83.0-100.0); Mean Platelet Volume 9.6 fL (9.4-12.4); Monocytes # 0.7 K/mcL (0.0-1.3); Monocytes % 9.1 %; Neutrophils # 6.7 K/mcL (1.6-8.9); Nucleated Red Blood Cells 0.2 /100 WBC (0); Platelet Count 237 K/mcL (140-400); Red Blood Count 2.52 M/mcL (4.19-5.50); Red Cell Distribution Width 14.4 % (11.5-14.5); Segmented Neutrophils % 82.8 %
[2022-06-25 03:52] LABS: Calcium 7.9 mg/dL (8.6-10.3); Magnesium 2.2 mg/dL (1.6-2.6); Potassium 4.3 mEq/L (3.5-5.1)
[2022-06-25] MEDS: Ipratropium/Albuterol Neb 3 ML IH SCH ×6 (03:52→23:23)
[2022-06-25] MEDS: *HR* Enoxaparin 40 MG/0.4 ML SYRINGE SQ SCH (05:20)
[2022-06-25] MEDS: *HR* HYDROcodone/Acet 5/325 mg TABLET PO PRN ×2 (05:26→11:31)
[2022-06-25] MEDS: Pantoprazole 40 MG VIAL IVP SCH (08:12)
[2022-06-25] MEDS: Pregabalin 75 MG CAPSULE PO SCH ×2 (08:12→20:49)
[2022-06-25] MEDS: Carbidopa/Levodopa 25/100 TABLET PO SCH ×3 (08:12→20:49)
[2022-06-25] MEDS: Aspirin Enteric Coated 81 MG Tablet PO SCH (08:12)
[2022-06-25] MEDS: Chlorhexidine Rinse 15 ML MOUTHWASH MM SCH ×2 (08:12→20:48)
[2022-06-25] MEDS: polyethylene glycoL 3350 17 GM POWD.PACK PO SCH (08:13)
[2022-06-25] MEDS: Insulin LISPRO 300 UNITS/3 ML VIAL SUBQ SCH ×4 (08:14→20:50)
[2022-06-25] MEDS ORDERED: Furosemide 20 MG/2 ML VIAL IVP ONE (10:30)
[2022-06-25] MEDS ORDERED: 0.9 % Sodium Chloride 250 ML IVC SCH (12:15)
[2022-06-25] MEDS: *HR* OxyCODONE Immed Rel 5 MG TABLET PO PRN (14:28)
[2022-06-25 17:41] LABS: VBG Ionized Calcium 1.08 mmol/L (1.15-1.35)
[2022-06-26] MEDS: Ipratropium/Albuterol Neb 3 ML IH SCH ×6 (03:44→23:20)
[2022-06-26] MEDS: *HR* Enoxaparin 40 MG/0.4 ML SYRINGE SQ SCH (05:17)
[2022-06-26 05:59] LABS: Basophils % 0.3 %; Eosinophils # 0.1 K/mcL (0.0-0.6); Eosinophils % 1.1 %; Hematocrit 26.7 % (37.5-50.1); Hemoglobin 8.5 g/dL (12.9-16.9); Immature Granulocytes % 4.4 % (0-4); Lymphocytes # 0.6 K/mcL (0.6-4.6); Mean Corpuscular HGB Conc 31.8 g/dL (31.6-35.5); Mean Corpuscular Hemoglobin 28.3 pg (28.0-33.3); Mean Platelet Volume 9.9 fL (9.4-12.4); Monocytes # 0.7 K/mcL (0.0-1.3); Monocytes % 10.8 %; Neutrophils # 4.9 K/mcL (1.6-8.9); Nucleated Red Blood Cells 0.3 /100 WBC (0); Platelet Count 202 K/mcL (140-400); Red Cell Distribution Width 14.6 % (11.5-14.5); Segmented Neutrophils % 74.4 %; White Blood Count 6.6 K/mcL (4.3-11.1)
[2022-06-26] MEDS: Chlorhexidine Rinse 15 ML MOUTHWASH MM SCH ×2 (07:53→20:35)
[2022-06-26] MEDS: polyethylene glycoL 3350 17 GM POWD.PACK PO SCH (08:11)
[2022-06-26] MEDS: Pregabalin 75 MG CAPSULE PO SCH ×2 (08:11→20:34)
[2022-06-26] MEDS: Carbidopa/Levodopa 25/100 TABLET PO SCH ×3 (08:11→20:35)
[2022-06-26] MEDS: Aspirin Enteric Coated 81 MG Tablet PO SCH (08:11)
[2022-06-26] MEDS: *HR* OxyCODONE Immed Rel 5 MG TABLET PO PRN ×4 (08:12→23:59)
[2022-06-26] MEDS: Insulin LISPRO 300 UNITS/3 ML VIAL SUBQ SCH ×3 (08:12→16:35)
[2022-06-26 09:58] LABS: BUN/Creatinine Ratio 30 (6-26); Blood Urea Nitrogen 24 mg/dL (8-23); Carbon Dioxide 23 mEq/L (23-29); Chloride 102 mEq/L (98-107); Glucose 236 mg/dL (70-105); Magnesium 2.2 mg/dL (1.6-2.6); Osmolality,Calculated 288 (280-300); Potassium 4.7 mEq/L (3.5-5.1); Sodium 133 mEq/L (136-145)
[2022-06-26] MEDS ORDERED: Insulin DETEMIR 100 UNIT/ML X5UNITS SUBQ SCH (12:00)
[2022-06-26] MEDS ORDERED: Acetaminophen 325 MG TABLET PO PRN (14:35)
[2022-06-26] MEDS ORDERED: D5% in Water 1,000 ML IVC PRN (14:35)
[2022-06-26] MEDS ORDERED: *HR* Dextrose 50 % in Water (Syg) 50 ML SYRINGE IVP PRN (14:35)
[2022-06-26] MEDS ORDERED: Ondansetron 4 MG/2 ML VIAL IVP PRN (14:35)
[2022-06-26] MEDS ORDERED: tiZANidine 4 MG TABLET PO PRN (14:35)
[2022-06-26] MEDS ORDERED: Naloxone 0.4 MG/ML INJ IVP PRN (14:35)
[2022-06-26] MEDS ORDERED: Chloraseptic Spray 177 ML BOTTLE MM PRN (14:35)
[2022-06-26] MEDS ORDERED: Dextrose Gel 15 GM/37.5 ML TUBE PO PRN ×2 (14:35)
[2022-06-26] MEDS ORDERED: Albuterol 2.5 MG/3 ML NEBULIZER IH PRN (14:35)
[2022-06-26] MEDS ORDERED: Mag Hydrox/Al Hydrox/Simeth 30 ML UDC PO PRN (14:35)
[2022-06-26] MEDS: Lactulose Oral Soln 20 GM/30 ML UDC PO SCH ×2 (16:40→20:35)
[2022-06-26] MEDS ORDERED: Insulin LISPRO 300 UNITS/3 ML VIAL SUBQ SCH (21:00)
[2022-06-27] MEDS: Ipratropium/Albuterol Neb 3 ML IH SCH ×6 (03:59→22:45)
[2022-06-27] MEDS: *HR* Enoxaparin 40 MG/0.4 ML SYRINGE SQ SCH (05:30)
[2022-06-27] MEDS: *HR* OxyCODONE Immed Rel 5 MG TABLET PO PRN ×2 (05:56→23:49)
[2022-06-27] MEDS: Pregabalin 75 MG CAPSULE PO SCH ×2 (08:23→19:35)
[2022-06-27] MEDS: Carbidopa/Levodopa 25/100 TABLET PO SCH ×3 (08:23→19:36)
[2022-06-27] MEDS: Chlorhexidine Rinse 15 ML MOUTHWASH MM SCH ×2 (08:23→19:35)
[2022-06-27] MEDS: Aspirin Enteric Coated 81 MG Tablet PO SCH (08:23)
[2022-06-27] MEDS: polyethylene glycoL 3350 17 GM POWD.PACK PO SCH ×2 (08:24→10:28)
[2022-06-27] MEDS: Lactulose Oral Soln 20 GM/30 ML UDC PO SCH ×3 (08:24→19:35)
[2022-06-27] MEDS: Insulin LISPRO 300 UNITS/3 ML VIAL SUBQ SCH ×4 (08:25→19:33)
[2022-06-27] MEDS: Insulin DETEMIR 100 UNIT/ML X5UNITS SUBQ SCH (08:29)
[2022-06-27 08:38] LABS: Basophils % 0.1 %; Eosinophils # 0.1 K/mcL (0.0-0.6); Eosinophils % 1.5 %; Hematocrit 30.8 % (37.5-50.1); Hemoglobin 9.4 g/dL (12.9-16.9); Immature Granulocytes % 2.2 % (0-4); Lymphocytes # 0.6 K/mcL (0.6-4.6); Mean Corpuscular HGB Conc 30.5 g/dL (31.6-35.5); Mean Corpuscular Hemoglobin 27.9 pg (28.0-33.3); Mean Corpuscular Volume 91.4 fL (83.0-100.0); Mean Platelet Volume 9.5 fL (9.4-12.4); Monocytes # 0.8 K/mcL (0.0-1.3); Monocytes % 11.3 %; Neutrophils # 5.1 K/mcL (1.6-8.9); Nucleated Red Blood Cells 0.4 /100 WBC (0); Platelet Count 271 K/mcL (140-400); Red Blood Count 3.37 M/mcL (4.19-5.50); Red Cell Distribution Width 14.9 % (11.5-14.5); Segmented Neutrophils % 75.9 %; White Blood Count 6.8 K/mcL (4.3-11.1)
[2022-06-27 08:49] LABS: BUN/Creatinine Ratio 24 (6-26); Blood Urea Nitrogen 21 mg/dL (8-23); Calcium 8.5 mg/dL (8.6-10.3); Carbon Dioxide 26 mEq/L (23-29); Chloride 102 mEq/L (98-107); Glucose 162 mg/dL (70-105); Magnesium 2.3 mg/dL (1.6-2.6); Osmolality,Calculated 289 (280-300); Potassium 4.6 mEq/L (3.5-5.1); Sodium 136 mEq/L (136-145)
[2022-06-27] MEDS ORDERED: Furosemide 20 MG TABLET PO PRN (08:57)
[2022-06-27] MEDS: *HR* HYDROcodone/Acet 5/325 mg TABLET PO PRN ×2 (10:19→19:12)
[2022-06-27] MEDS ORDERED: *HR* Dextrose 50 % in Water (Syg) 50 ML SYRINGE IVP PRN (14:17)
[2022-06-27] MEDS ORDERED: D5% in Water 1,000 ML IVC PRN (14:17)
[2022-06-27] MEDS ORDERED: Dextrose Gel 15 GM/37.5 ML TUBE PO PRN ×2 (14:17)
[2022-06-27] MEDS ORDERED: Insulin LISPRO 300 UNITS/3 ML VIAL SUBQ SCH (18:00)
[2022-06-28] MEDS: Ipratropium/Albuterol Neb 3 ML IH SCH ×6 (04:06→23:39)
[2022-06-28] MEDS: *HR* Enoxaparin 40 MG/0.4 ML SYRINGE SQ SCH (05:40)
[2022-06-28] MEDS: *HR* HYDROcodone/Acet 5/325 mg TABLET PO PRN (05:43)
[2022-06-28] MEDS ORDERED: Insulin LISPRO 300 UNITS/3 ML VIAL SUBQ SCH (07:30)
[2022-06-28] MEDS: polyethylene glycoL 3350 17 GM POWD.PACK PO SCH (07:45)
[2022-06-28] MEDS: Chlorhexidine Rinse 15 ML MOUTHWASH MM SCH ×2 (07:45→19:53)
[2022-06-28] MEDS: Lactulose Oral Soln 20 GM/30 ML UDC PO SCH ×2 (07:45→19:48)
[2022-06-28] MEDS: Aspirin Enteric Coated 81 MG Tablet PO SCH (07:46)
[2022-06-28] MEDS: Carbidopa/Levodopa 25/100 TABLET PO SCH ×3 (07:46→19:47)
[2022-06-28] MEDS: Pregabalin 75 MG CAPSULE PO SCH ×2 (07:46→19:48)
[2022-06-28] MEDS: Insulin LISPRO 300 UNITS/3 ML VIAL SUBQ SCH ×4 (07:47→19:49)
[2022-06-28] MEDS: Insulin DETEMIR 100 UNIT/ML X5UNITS SUBQ SCH (07:47)
[2022-06-28 08:19] LABS: Basophils % 0.3 %; Eosinophils # 0.1 K/mcL (0.0-0.6); Eosinophils % 1.4 %; Hematocrit 30.2 % (37.5-50.1); Hemoglobin 9.3 g/dL (12.9-16.9); Immature Granulocytes % 1.7 % (0-4); Lymphocytes # 0.6 K/mcL (0.6-4.6); Lymphocytes % 9.4 %; Mean Corpuscular HGB Conc 30.8 g/dL (31.6-35.5); Mean Corpuscular Hemoglobin 27.8 pg (28.0-33.3); Mean Corpuscular Volume 90.4 fL (83.0-100.0); Monocytes # 0.7 K/mcL (0.0-1.3); Monocytes % 11.1 %; Nucleated Red Blood Cells 0.3 /100 WBC (0); Platelet Count 222 K/mcL (140-400); Red Blood Count 3.34 M/mcL (4.19-5.50); Segmented Neutrophils % 76.1 %; White Blood Count 6.6 K/mcL (4.3-11.1)
[2022-06-28 08:40] LABS: BUN/Creatinine Ratio 20 (6-26); Blood Urea Nitrogen 16 mg/dL (8-23); Calcium 8.1 mg/dL (8.6-10.3); Carbon Dioxide 26 mEq/L (23-29); Chloride 101 mEq/L (98-107); Glucose 178 mg/dL (70-105); Magnesium 2.1 mg/dL (1.6-2.6); Osmolality,Calculated 286 (280-300); Potassium 4.1 mEq/L (3.5-5.1); Sodium 135 mEq/L (136-145)
[2022-06-28] MEDS ORDERED: *HR* LORazepam 2 MG/ML VIAL IVP ONE (23:35)
[2022-06-29] MEDS: Ipratropium/Albuterol Neb 3 ML IH SCH ×6 (04:07→23:17)
[2022-06-29] MEDS: *HR* Enoxaparin 40 MG/0.4 ML SYRINGE SQ SCH (05:50)
[2022-06-29 06:24] LABS: Basophils % 0.4 %; Eosinophils # 0.1 K/mcL (0.0-0.6); Hematocrit 30.2 % (37.5-50.1); Hemoglobin 9.3 g/dL (12.9-16.9); Immature Granulocytes % 2.1 % (0-4); Immature Platelets 8.1 % (1.1-6.1); Lymphocytes # 0.5 K/mcL (0.6-4.6); Lymphocytes % 6.1 %; Mean Corpuscular HGB Conc 30.8 g/dL (31.6-35.5); Mean Corpuscular Hemoglobin 28.2 pg (28.0-33.3); Mean Corpuscular Volume 91.5 fL (83.0-100.0); Mean Platelet Volume 10.6 fL (9.4-12.4); Monocytes # 0.7 K/mcL (0.0-1.3); Monocytes % 8.6 %; Neutrophils # 6.3 K/mcL (1.6-8.9); Platelet Count 160 K/mcL (140-400); Red Cell Distribution Width 14.6 % (11.5-14.5); Segmented Neutrophils % 81.8 %; White Blood Count 7.7 K/mcL (4.3-11.1)
[2022-06-29 06:35] LABS: BUN/Creatinine Ratio 18 (6-26); Blood Urea Nitrogen 13 mg/dL (8-23); Calcium 8.3 mg/dL (8.6-10.3); Carbon Dioxide 26 mEq/L (23-29); Chloride 102 mEq/L (98-107); Glucose 145 mg/dL (70-105); Magnesium 2.1 mg/dL (1.6-2.6); Osmolality,Calculated 281 (280-300); Potassium 4.2 mEq/L (3.5-5.1); Sodium 134 mEq/L (136-145)
[2022-06-29] MEDS: Insulin LISPRO 300 UNITS/3 ML VIAL SUBQ SCH ×4 (09:24→21:24)
[2022-06-29] MEDS: Pregabalin 75 MG CAPSULE PO SCH ×2 (09:24→22:50)
[2022-06-29] MEDS: Chlorhexidine Rinse 15 ML MOUTHWASH MM SCH ×2 (09:25→22:49)
[2022-06-29] MEDS: Furosemide 20 MG TABLET PO SCH ×2 (09:25→16:59)
[2022-06-29] MEDS: Aspirin Enteric Coated 81 MG Tablet PO SCH (09:25)
[2022-06-29] MEDS: Carbidopa/Levodopa 25/100 TABLET PO SCH ×3 (09:25→22:49)
[2022-06-29] MEDS: Lactulose Oral Soln 20 GM/30 ML UDC PO SCH ×2 (09:26→22:49)
[2022-06-29] MEDS: polyethylene glycoL 3350 17 GM POWD.PACK PO SCH (09:26)
[2022-06-29] MEDS: Insulin DETEMIR 100 UNIT/ML X5UNITS SUBQ SCH (09:28)
[2022-06-29] MEDS: *HR* OxyCODONE Immed Rel 5 MG TABLET PO PRN (12:01)
[2022-06-29] MEDS ORDERED: QUEtiapine Fumarate 25 MG TABLET PO PRN (17:33)
[2022-06-29] MEDS ORDERED: Haloperidol Lactate 5 MG/ML VIAL IVP PRN (17:33)
[2022-06-29] MEDS ORDERED: *HR* LORazepam 2 MG/ML VIAL IVP PRN (17:34)
[2022-06-30 03:03] LABS: Basophils % 0.1 %; Eosinophils # 0.1 K/mcL (0.0-0.6); Eosinophils % 1.6 %; Hematocrit 27.5 % (37.5-50.1); Hemoglobin 8.4 g/dL (12.9-16.9); Immature Granulocytes % 2.2 % (0-4); Lymphocytes # 0.5 K/mcL (0.6-4.6); Lymphocytes % 7.3 %; Mean Corpuscular HGB Conc 30.5 g/dL (31.6-35.5); Mean Corpuscular Hemoglobin 27.5 pg (28.0-33.3); Mean Corpuscular Volume 89.9 fL (83.0-100.0); Mean Platelet Volume 9.7 fL (9.4-12.4); Monocytes # 0.6 K/mcL (0.0-1.3); Monocytes % 8.8 %; Neutrophils # 5.6 K/mcL (1.6-8.9); Platelet Count 212 K/mcL (140-400); Red Blood Count 3.06 M/mcL (4.19-5.50); Red Cell Distribution Width 14.9 % (11.5-14.5)
[2022-06-30 03:21] LABS: BUN/Creatinine Ratio 19 (6-26); Blood Urea Nitrogen 16 mg/dL (8-23); Calcium 8.1 mg/dL (8.6-10.3); Carbon Dioxide 28 mEq/L (23-29); Chloride 102 mEq/L (98-107); Glucose 218 mg/dL (70-105); Osmolality,Calculated 290 (280-300); Potassium 3.9 mEq/L (3.5-5.1); Sodium 136 mEq/L (136-145)
[2022-06-30] MEDS: Ipratropium/Albuterol Neb 3 ML IH SCH ×3 (04:00→10:59)
[2022-06-30] MEDS: *HR* Enoxaparin 40 MG/0.4 ML SYRINGE SQ SCH (05:27)
[2022-06-30] MEDS: *HR* HYDROcodone/Acet 5/325 mg TABLET PO PRN (07:58)
[2022-06-30] MEDS: Insulin LISPRO 300 UNITS/3 ML VIAL SUBQ SCH ×2 (08:00→11:44)
[2022-06-30] MEDS: Pregabalin 75 MG CAPSULE PO SCH (08:42)
[2022-06-30] MEDS: Aspirin Enteric Coated 81 MG Tablet PO SCH (08:42)
[2022-06-30] MEDS: Carbidopa/Levodopa 25/100 TABLET PO SCH (08:43)
[2022-06-30] MEDS: Furosemide 20 MG TABLET PO SCH (08:43)
[2022-06-30] MEDS: Lactulose Oral Soln 20 GM/30 ML UDC PO SCH (08:43)
[2022-06-30] MEDS: Chlorhexidine Rinse 15 ML MOUTHWASH MM SCH (08:43)
[2022-06-30] MEDS: polyethylene glycoL 3350 17 GM POWD.PACK PO SCH (08:46)
[2022-06-30] MEDS: Insulin DETEMIR 100 UNIT/ML X5UNITS SUBQ SCH (08:52)
[2022-06-30 10:54] VITALS: BP 114/77; PULSE 67; TEMP 97.7
[2022-06-30 11:02] LABS: Adenovirus Not Detected (Not Detect); Bordetella Pertussis Not Detected (Not Detect); Chlamydophila pneumoniae Not Detected (Not Detect); Coronavirus 229E Not Detected (Not Detect); Coronavirus HKU1 Not Detected (Not Detect); Coronavirus NL63 Not Detected (Not Detect); Coronavirus OC43 Not Detected (Not Detect); Human Metapneumovirus Not Detected (Not Detect); Human Rhinovirus/Enterovirus Not Detected (Not Detect); Influenza A Subtype 2009 H1 Not Detected (Not Detect); Influenza B Not Detected (Not Detect); Mycoplasma pneumoniae Not Detected (Not Detect); Parainfluenza Virus 1 Not Detected (Not Detect); Parainfluenza Virus 2 Not Detected (Not Detect); Parainfluenza Virus 3 Not Detected (Not Detect); Parainfluenza Virus 4 Not Detected (Not Detect); Respiratory Syncytial Virus Not Detected (Not Detect); SARS-CoV-2 Not Detected (Not Detect)
[2022-06-30 11:54] VITALS: O2SAT 100
== END 2022-06-30 11:42 | DRG 234 ==
LOC: 2NENU → SUATTDRO 14:41 → ICNU 06-22 12:30 → 2NNU 06-26 14:37 → 2ANU 06-29 21:03
PROVIDERS: ADMIT Internal Medicine; ATTEND Internal Medicine

== ENCOUNTER 2022-07-04 11:19 | Observation (INO) ==
[2022-07-04] MEDS ORDERED: Ondansetron 4 MG/2 ML VIAL IVP PRN (14:43)
[2022-07-04] MEDS ORDERED: Naloxone 0.4 MG/ML INJ IVP PRN (14:43)
[2022-07-04] MEDS ORDERED: Gadolinium Contrast Agent (WT Based) IV PRN (15:09)
[2022-07-04] MEDS ORDERED: *HR* Heparin 5,000 UNIT/ML VIAL IVP ONE (15:23)
[2022-07-04] MEDS ORDERED: *HR* Heparin 5,000 UNIT/ML VIAL IVP PRN ×2 (15:23)
[2022-07-04] MEDS ORDERED: Heparin 25,000UNIT/250ML 1/2NS 25,000 UNIT/250 ML IV.SOLN IVC SCH (15:30)
[2022-07-04 15:38] LABS: Bilirubin,Urine Negative (Negative); Blood,Urine Small (Negative); Clarity,Urine Clear (Clear); Color,Urine Yellow (Yellow); Glucose,Urine (UA) Normal (Normal); Ketones,Urine Negative (Negative); Leukocyte Esterase,Urine Negative (Negative); Mucus,Urine Few per lpf (None-Few); Nitrite,Urine Negative (Negative); Protein,Urine 50 mg/dL (Neg-Trace); RBC,Urine 30-50 per hpf (0-3); Specific Gravity,Urine > 1.030 (1.010-1.025); Urobilinogen,Urine >=8.0 mg/dL (Normal); WBC,Urine 0-3 per hpf (0-3)
[2022-07-04 16:09] LABS: Basophils % 0.1 %; Eosinophils % 0.1 %; Hemoglobin 8.7 g/dL (12.9-16.9); Immature Granulocytes % 0.7 % (0-4); Lymphocytes # 0.3 K/mcL (0.6-4.6); Lymphocytes % 2.5 %; Mean Corpuscular HGB Conc 31.1 g/dL (31.6-35.5); Mean Corpuscular Hemoglobin 26.9 pg (28.0-33.3); Mean Corpuscular Volume 86.7 fL (83.0-100.0); Mean Platelet Volume 9.3 fL (9.4-12.4); Monocytes # 0.9 K/mcL (0.0-1.3); Monocytes % 6.9 %; Platelet Count 248 K/mcL (140-400); Red Blood Count 3.23 M/mcL (4.19-5.50); Red Cell Distribution Width 15.6 % (11.5-14.5); Segmented Neutrophils % 89.7 %
[2022-07-04 16:10] LABS: Neutrophils # 11.9 K/mcL (1.6-8.9); White Blood Count 13.3 K/mcL (4.3-11.1)
[2022-07-04 16:22] LABS: Heparin anti-factor XA UFH < 0.04 IU/mL (0.30-0.70)
[2022-07-04 16:23] LABS: INR 1.4; Prothrombin Time 15.9 Seconds (9.4-12.1)
[2022-07-04] MEDS: D5% in 0.9% NACL w KCl 20 MEQ/1,000 ML MLS IVC SCH (16:24)
[2022-07-04 16:39] LABS: Alanine Aminotransferase 3 Units/L (7-52); Albumin 3.4 g/dL (3.5-5.7); Albumin/Globulin Ratio 1.5 (1.1-2.2); Alkaline Phosphatase 114 Units/L (34-104); Aspartate Amino Transferase 16 Units/L (13-39); BUN/Creatinine Ratio 16 (6-26); Bilirubin,Total 0.7 mg/dL (0.3-1.0); Blood Urea Nitrogen 11 mg/dL (8-23); C-Reactive Protein 130 mg/L (Less than 10); Calcium 8.4 mg/dL (8.6-10.3); Carbon Dioxide 25 mEq/L (23-29); Chloride 101 mEq/L (98-107); Globulin 2.3 g/dL (2.4-3.5); Glucose 29 mg/dL (70-105); Osmolality,Calculated 274 (280-300); Potassium 3.6 mEq/L (3.5-5.1); Sodium 134 mEq/L (136-145); Total Protein 5.7 g/dL (6.4-8.9); Troponin I 0.06 ng/mL (< 0.04)
[2022-07-04] MEDS ORDERED: *HR* Dextrose 50 % in Water (Syg) 50 ML SYRINGE IVP ONE (16:40)
[2022-07-04] MEDS ORDERED: Dextrose Gel 15 GM/37.5 ML TUBE PO PRN ×2 (17:54)
[2022-07-04] MEDS ORDERED: *HR* Dextrose 50 % in Water (Syg) 50 ML SYRINGE IVP PRN (17:54)
[2022-07-04] MEDS ORDERED: D5% in Water 1,000 ML IVC PRN (17:54)
[2022-07-04] MEDS: Insulin LISPRO 300 UNITS/3 ML VIAL SUBQ SCH (18:53)
[2022-07-05] MEDS: Insulin LISPRO 300 UNITS/3 ML VIAL SUBQ SCH ×4 (00:04→15:41)
[2022-07-05] MEDS: D5% in 0.9% NACL w KCl 20 MEQ/1,000 ML MLS IVC SCH (05:28)
[2022-07-05 05:42] LABS: Basophils % 0.2 %; Eosinophils % 0.4 %; Hemoglobin 7.5 g/dL (12.9-16.9); Immature Granulocytes % 0.8 % (0-4); Lymphocytes # 0.4 K/mcL (0.6-4.6); Lymphocytes % 3.2 %; Mean Corpuscular Hemoglobin 26.3 pg (28.0-33.3); Mean Corpuscular Volume 87.7 fL (83.0-100.0); Mean Platelet Volume 9.3 fL (9.4-12.4); Monocytes # 0.9 K/mcL (0.0-1.3); Monocytes % 8.4 %; Neutrophils # 9.6 K/mcL (1.6-8.9); Platelet Count 218 K/mcL (140-400); Red Blood Count 2.85 M/mcL (4.19-5.50); Red Cell Distribution Width 15.6 % (11.5-14.5)
[2022-07-05 05:59] LABS: BUN/Creatinine Ratio 16 (6-26); Blood Urea Nitrogen 12 mg/dL (8-23); Calcium 7.9 mg/dL (8.6-10.3); Carbon Dioxide 26 mEq/L (23-29); Chloride 101 mEq/L (98-107); Glucose 138 mg/dL (70-105); Magnesium 1.8 mg/dL (1.6-2.6); Osmolality,Calculated 278 (280-300); Potassium 3.7 mEq/L (3.5-5.1); Sodium 133 mEq/L (136-145)
[2022-07-05] MEDS: Furosemide 20 MG TABLET PO SCH ×2 (10:16→15:38)
[2022-07-05] MEDS: Lactulose Oral Soln 20 GM/30 ML UDC PO SCH ×2 (10:16→20:07)
[2022-07-05] MEDS: Aspirin Enteric Coated 81 MG Tablet PO SCH (10:16)
[2022-07-05] MEDS: *HR* Heparin 5,000 UNIT/ML VIAL SQ SCH ×2 (13:34→20:07)
[2022-07-05] MEDS: Carbidopa/Levodopa 25/100 TABLET PO SCH ×2 (15:38→20:07)
[2022-07-06 02:09] LABS: BUN/Creatinine Ratio 21 (6-26); Blood Urea Nitrogen 15 mg/dL (8-23); C-Reactive Protein 238 mg/L (Less than 10); Calcium 8.6 mg/dL (8.6-10.3); Carbon Dioxide 25 mEq/L (23-29); Chloride 101 mEq/L (98-107); Glucose 180 mg/dL (70-105); Magnesium 1.9 mg/dL (1.6-2.6); Osmolality,Calculated 283 (280-300); Potassium 3.9 mEq/L (3.5-5.1); Sodium 134 mEq/L (136-145)
[2022-07-06 02:19] LABS: Basophils % 0.1 %; Eosinophils % 0.3 %; Hematocrit 26.6 % (37.5-50.1); Immature Granulocytes % 0.8 % (0-4); Lymphocytes # 0.4 K/mcL (0.6-4.6); Lymphocytes % 4.1 %; Mean Corpuscular HGB Conc 30.1 g/dL (31.6-35.5); Mean Corpuscular Hemoglobin 26.3 pg (28.0-33.3); Mean Corpuscular Volume 87.5 fL (83.0-100.0); Mean Platelet Volume 9.3 fL (9.4-12.4); Monocytes # 0.8 K/mcL (0.0-1.3); Monocytes % 8.2 %; Neutrophils # 8.5 K/mcL (1.6-8.9); Platelet Count 233 K/mcL (140-400); Red Blood Count 3.04 M/mcL (4.19-5.50); Red Cell Distribution Width 15.7 % (11.5-14.5); Segmented Neutrophils % 86.5 %; White Blood Count 9.9 K/mcL (4.3-11.1)
[2022-07-06] MEDS: *HR* Heparin 5,000 UNIT/ML VIAL SQ SCH ×3 (05:05→20:26)
[2022-07-06] MEDS: Metoprolol XL (24 HR) Succ 25 MG TAB.ER.24H PO SCH (08:48)
[2022-07-06] MEDS: lisinopriL 5 MG TABLET PO SCH (08:48)
[2022-07-06] MEDS: Lactulose Oral Soln 20 GM/30 ML UDC PO SCH ×2 (08:48→20:26)
[2022-07-06] MEDS: Furosemide 20 MG TABLET PO SCH ×2 (08:48→15:56)
[2022-07-06] MEDS: Carbidopa/Levodopa 25/100 TABLET PO SCH ×3 (08:48→20:27)
[2022-07-06] MEDS: Aspirin Enteric Coated 81 MG Tablet PO SCH (08:48)
[2022-07-06] MEDS: polyethylene glycoL 3350 17 GM POWD.PACK PO SCH (08:48)
[2022-07-06] MEDS: Insulin LISPRO 300 UNITS/3 ML VIAL SUBQ SCH ×3 (08:49→16:01)
[2022-07-07 03:58] LABS: Basophils % 0.1 %; Eosinophils # 0.1 K/mcL (0.0-0.6); Eosinophils % 0.7 %; Hematocrit 26.6 % (37.5-50.1); Immature Granulocytes % 0.6 % (0-4); Lymphocytes # 0.4 K/mcL (0.6-4.6); Lymphocytes % 6.5 %; Mean Corpuscular HGB Conc 30.1 g/dL (31.6-35.5); Mean Corpuscular Hemoglobin 26.1 pg (28.0-33.3); Mean Corpuscular Volume 86.9 fL (83.0-100.0); Mean Platelet Volume 9.3 fL (9.4-12.4); Monocytes # 0.5 K/mcL (0.0-1.3); Monocytes % 7.7 %; Neutrophils # 5.7 K/mcL (1.6-8.9); Platelet Count 264 K/mcL (140-400); Red Blood Count 3.06 M/mcL (4.19-5.50); Red Cell Distribution Width 15.6 % (11.5-14.5); Segmented Neutrophils % 84.4 %; White Blood Count 6.8 K/mcL (4.3-11.1)
[2022-07-07 04:06] LABS: BUN/Creatinine Ratio 20 (6-26); Blood Urea Nitrogen 15 mg/dL (8-23); Calcium 8.3 mg/dL (8.6-10.3); Carbon Dioxide 27 mEq/L (23-29); Chloride 102 mEq/L (98-107); Glucose 144 mg/dL (70-105); Osmolality,Calculated 283 (280-300); Potassium 3.8 mEq/L (3.5-5.1); Sodium 135 mEq/L (136-145)
[2022-07-07] MEDS: *HR* Heparin 5,000 UNIT/ML VIAL SQ SCH ×3 (05:13→20:04)
[2022-07-07] MEDS: Insulin LISPRO 300 UNITS/3 ML VIAL SUBQ SCH ×3 (07:27→16:40)
[2022-07-07] MEDS: Furosemide 20 MG TABLET PO SCH ×2 (08:16→15:32)
[2022-07-07] MEDS: polyethylene glycoL 3350 17 GM POWD.PACK PO SCH (08:16)
[2022-07-07] MEDS: Carbidopa/Levodopa 25/100 TABLET PO SCH ×3 (08:16→20:04)
[2022-07-07] MEDS: lisinopriL 5 MG TABLET PO SCH (08:16)
[2022-07-07] MEDS: Aspirin Enteric Coated 81 MG Tablet PO SCH (08:16)
[2022-07-07] MEDS: Metoprolol XL (24 HR) Succ 25 MG TAB.ER.24H PO SCH (08:16)
[2022-07-07] MEDS: Lactulose Oral Soln 20 GM/30 ML UDC PO SCH ×3 (08:16→20:04)
[2022-07-07] MEDS: Melatonin 3 MG TABLET PO PRN (20:03)
[2022-07-08] MEDS: *HR* Heparin 5,000 UNIT/ML VIAL SQ SCH ×2 (06:17→12:22)
[2022-07-08] MEDS: Metoprolol XL (24 HR) Succ 25 MG TAB.ER.24H PO SCH (07:24)
[2022-07-08] MEDS: Lactulose Oral Soln 20 GM/30 ML UDC PO SCH ×2 (07:24→20:14)
[2022-07-08] MEDS: polyethylene glycoL 3350 17 GM POWD.PACK PO SCH (07:24)
[2022-07-08] MEDS: lisinopriL 5 MG TABLET PO SCH (07:24)
[2022-07-08] MEDS: Furosemide 20 MG TABLET PO SCH ×2 (07:24→16:35)
[2022-07-08] MEDS: Carbidopa/Levodopa 25/100 TABLET PO SCH ×3 (07:25→20:13)
[2022-07-08] MEDS: Insulin LISPRO 300 UNITS/3 ML VIAL SUBQ SCH ×3 (07:25→16:37)
[2022-07-08] MEDS: Aspirin Enteric Coated 81 MG Tablet PO SCH (07:25)
[2022-07-08 14:39] LABS: Basophils % 0.2 %; Eosinophils % 0.5 %; Hematocrit 27.8 % (37.5-50.1); Hemoglobin 8.4 g/dL (12.9-16.9); Immature Granulocytes % 0.5 % (0-4); Lymphocytes # 0.4 K/mcL (0.6-4.6); Lymphocytes % 7.1 %; Mean Corpuscular HGB Conc 30.2 g/dL (31.6-35.5); Mean Corpuscular Hemoglobin 26.1 pg (28.0-33.3); Mean Corpuscular Volume 86.3 fL (83.0-100.0); Mean Platelet Volume 8.9 fL (9.4-12.4); Monocytes # 0.5 K/mcL (0.0-1.3); Monocytes % 8.5 %; Neutrophils # 4.9 K/mcL (1.6-8.9); Platelet Count 290 K/mcL (140-400); Red Blood Count 3.22 M/mcL (4.19-5.50); Red Cell Distribution Width 15.6 % (11.5-14.5); Segmented Neutrophils % 83.2 %; White Blood Count 5.9 K/mcL (4.3-11.1)
[2022-07-08 15:02] LABS: BUN/Creatinine Ratio 19 (6-26); Blood Urea Nitrogen 16 mg/dL (8-23); Calcium 8.1 mg/dL (8.6-10.3); Carbon Dioxide 28 mEq/L (23-29); Chloride 100 mEq/L (98-107); Glucose 249 mg/dL (70-105); Osmolality,Calculated 290 (280-300); Potassium 3.7 mEq/L (3.5-5.1); Sodium 135 mEq/L (136-145)
[2022-07-08] MEDS: Melatonin 3 MG TABLET PO PRN (20:14)
[2022-07-09] MEDS: *HR* Heparin 5,000 UNIT/ML VIAL SQ SCH ×4 (01:00→21:26)
[2022-07-09] MEDS: Aspirin Enteric Coated 81 MG Tablet PO SCH (07:56)
[2022-07-09] MEDS: Lactulose Oral Soln 20 GM/30 ML UDC PO SCH ×2 (07:56→21:26)
[2022-07-09] MEDS: Metoprolol XL (24 HR) Succ 25 MG TAB.ER.24H PO SCH (07:56)
[2022-07-09] MEDS: Insulin LISPRO 300 UNITS/3 ML VIAL SUBQ SCH ×3 (07:56→16:35)
[2022-07-09] MEDS: Furosemide 20 MG TABLET PO SCH ×2 (07:57→16:43)
[2022-07-09] MEDS: lisinopriL 5 MG TABLET PO SCH (07:57)
[2022-07-09] MEDS: Carbidopa/Levodopa 25/100 TABLET PO SCH ×3 (07:57→21:26)
[2022-07-09] MEDS: polyethylene glycoL 3350 17 GM POWD.PACK PO SCH (07:57)
[2022-07-09 16:15] VITALS: TEMP 97.2
[2022-07-09 20:06] VITALS: BP 133/50; PULSE 77; O2SAT 96
[2022-07-09] MEDS ORDERED: Lactulose Oral Soln 20 GM/30 ML UDC PO ONE (21:15)
[2022-07-09] MEDS ORDERED: Carbidopa/Levodopa 25/100 TABLET PO ONE (21:15)
[2022-07-09] MEDS ORDERED: *HR* Heparin 5,000 UNIT/ML VIAL IVP ONE (21:15)
[2022-07-11] MEDS ORDERED: Cholecalciferol (D-3) 1,000 UNIT (25MCG) TABLET PO SCH (09:00)
== END 2022-07-09 23:59 | disposition other institution (70) ==
LOC: 2NENU → SUATTDRO 14:09
PROVIDERS: ADMIT Hospitalist; ATTEND Hospitalist